=== PATIENT | male | born 1955 | race Caucasian/White ===

== ENCOUNTER → 2018-05-13 | Outpatient (CLI) | payer BC ==
--- NOTE | 2018-05-13 23:18 | CT ---
EXAMINATION TYPE: CT abdomen pelvis wo/w con DATE OF EXAM: 05/13/2018 COMPARISON: None HISTORY: Cystitis with hematuria per order. UTI for [address] DLP: 4195.60 mGycm, Automated Exposure Control for Dose Reduction was Utilized. CONTRAST: CT scan of the abdomen and pelvis is performed with oral and without and with IV Contrast, patient in jected with 100 mL of Isovue 300. FINDINGS: LUNG BASES: There is suspected coronary stent in the mid RCA. LIVER/GB: No significant abnormality is appreciated. PANCREAS: No significant abnormality is seen. SPLEEN: No significant abnormality is seen. ADRENALS: No significant abnormality is seen. KIDNEYS: Noncontrast images show no renal calculi bilaterally. Symmetric cortical thinning is present bilaterally. Postcontrast images show symmetric cortical medullary uptake and excretion from both ki dneys without concerning solid or cystic renal mass or hydronephrosis seen bilaterally. Urinary bladd er is unremarkable in the midline of the anterior pelvis without wall thickening or intraluminal mass . BOWEL: Oral contrast only reaches mid small bowel loops. There is no suspicious small or large bowel dilatation. PROSTATE/SEMINAL VESICLES: Some central calcifications are seen in normal size prostate gland. LYMPH NODES: No greater than 1cm abdominal or pelvic lymph nodes are appreciated. OSSEOUS STRUCTURES: There is some facet arthropathy in the mid to lower lumbar spine. OTHER: There is a small fat-containing right inguinal hernia. A few scattered pelvic phleboliths are present bilaterally. IMPRESSION: No renal calculi. No suspicious urinary mass or hydronephrosis.
== END | disposition home or self-care (01) ==
LOC: RADCTMAIN 16:00
PROVIDERS: ATTEND Urology
DX: N30.81 Other cystitis with hematuria (principal)
CPT/HCPCS: 74178; Q9967